=== PATIENT | male | born 1980 | race African-American/Black ===

== ENCOUNTER 2024-08-21 11:31 | Outpatient (AMB) | payer OTHER, SELFPAY ==
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
--- OUTSIDE RECORDS SUMMARY | 2024-08-21 14:10 | XMS_ITS | Clinical Summary ---
Author Organization [facility] Address [address] [place] [address] Phone Care Team Providers Care Polisher Eyeglass Frames Name Role Phone Jolly Beltre Primary Care Provider [phone] Allergies No known active allergies Medications FLUoxetine (PROzac) 20 mg capsuleIndicati ons:anxiety with depression Take 30 mg by mouth 1 (one) time each day. Active metFORMIN (GLUCOPHAGE) 500 mg tabletIndicatio ns:type 2 diabetes mellitus Take 1 tablet (500 mg total) by mouth 2 (two) times a day with meals. Active busPIRone (BUSPAR) 10 mg tabletIndicatio ns:generalized anxiety disorder Take 1 tablet (10 mg total) by mouth at bedtime as needed. Active methocarbamoL (ROBAXIN) 750 mg tablet Take 1 tablet (750 mg total) by mouth 4 (four) times a day for 10 days. 40 each 04/23/2024 Active Medical History Medical History Date Comments Diabetes mellitus (CMS/HCC) Anxiety Social History Tobacco Use Types Packs/Day Years Used Date Smoking Tobacco: Some Days Cigarettes Tobacco Cessation:Ready to Q uit: Not Asked; Counseling Given: Not Answered Alcohol Use Standard Drinks/Week Comments Not Currently 0 (1 standard drink = 0.6 oz pur e alcohol) Sex and Gender Information Value Date Recorded Sex Assigned at Not on file Legal Sex Male 7:34 PM EST Gender Identity Not on file Sexual Orientation Not on file Obstetrics History Last Filed Vital Signs Vital Sign Reading Time Taken Comments Blood Pressure 93/60 04/23/2024 5:43 AM EST Pulse 84 04/23/2024 5:43 AM EST Temperature 36.9 ??C (98.4 ??F) 04/23/2024 5:43 AM ES T Respiratory Rate 20 04/23/2024 5:43 AM EST Oxygen Saturation 98% 04/23/2024 5:43 AM EST Inhaled Oxygen Concentration - - Weight 81.6 kg (180 lb) 04/23/2024 5:43 AM EST Height 167.6 cm (5' 6 ) 04/23/2024 5:43 AM EST Body Mass Index 29.05 04/23/2024 5:43 AM EST Plan of Treatment Health Maintenance Due Date Last Done Comments Hepatitis B Vaccines (1 of 3 - 19+ 3-dose series) 10/09/1999 Cholesterol Screening (Lipid Panel) 05/20/2022 Depression Screening 05/20/2022 HIV Screening 05/20/2022 Hepatitis C Screening 05/20/2022 Social Influencers of Health Screening 05/20/2022 COVID-19 Vaccine ( - 2023-2 5 season) 2024 12/09/2020, 11/18/2020 Influenza Vaccine (#1) 2024 06/10/2014 Hypertension/CHF/CAD Annual BMP Blood Test 04/23/2024 DTaP,Tdap,and Td Vaccines (2 - Td or Tdap) 06/10/2024 06/10/2014 Pneumococcal Vaccine: Pediatrics (0 to 5 Years) and At-Risk Patients (6 to 64 Years) (3 of 3 - PCV20 or PCV21) 2030 12/17/2014, 06/10/2014 HIB Vaccines Aged Out No longer eligi ble based on patient's age to complete this topic HPV Vaccines Aged Out No longer eligi ble based on patient's age to complete this topic Hepatitis A Vaccines Aged Out No long er eligible based on patient's age to complete this topic IPV Vaccines Aged Out No longer eligi ble based on patient's age to complete this topic MMR Vaccines Aged Out No longer eligi ble based on patient's age to complete this topic Meningococcal ACWY Vaccine Aged Out N o longer eligible based on patient's age to complete this topic Meningococcal B Vacine Aged Out No lo nger eligible based on patient's age to complete this topic RSV Immunization Patients Under 20 months Aged Out No longer eligible b ased on patient's age to complete this topic Varicella Vaccines Aged Out No longer eligible based on patient's age to complete this topic Insurance MEDICAID - [place] Care Teams [employer] Relationship Specialty Start Date End Date Jolly Beltre PCP - General Family Medicine 04/23/24
== END 2024-08-21 12:31 | disposition home or self-care (01) ==
PROVIDERS: Visit Provider Physical Medicine & Rehabilitation
DX: M25.552 Pain in left hip (principal); Z04.3 Encounter for examination and observation following other accident; M16.12 Unilateral primary osteoarthritis, left hip
CPT/HCPCS: 99204

== ENCOUNTER 2024-08-21 11:31 | Outpatient (REF) | payer OTHER, SELFPAY ==
--- NOTE | ~2024-08-21 | XR_ITS ---
EXAMINATION: XR HIP, LEFT CLINICAL INFORMATION: M16.12 - Unilateral primary osteoarthritis, left hip COMPARISON: None available. TECHNIQUE: Two views of the left hip. FINDINGS: No fracture, dislocation, or suspicious bone lesion. Normal bone mineralization. Normal alignment. Normal acetabular coverage. Joint spaces are preserved. No significant arthropathy. There is mild calcific enthesopathy of the posterior greater trochanter. Soft tissues appear normal. XR/XR hip LT min 2V IMPRESSION: 1. No acute findings left hip. 2. Calcific enthesopathy of the posterior greater trochanter. Electronically signed by: Darren Hyman MD 08/25/2024 10:19 AM EDT
--- OUTSIDE RECORDS SUMMARY | 2024-08-21 14:38 | XMS_ITS | Clinical Summary ---
Author Organization [facility] Address [address] [place] [address] Phone Care Team Providers Care Mattress Spring Encaser Name Role Phone Jolly Beltre Primary Care Provider [phone] Allergies No known active allergies Medications FLUoxetine [...] topic Insurance MEDICA[place] - [place] Care Teams Mattress Spring Encaser Relationship Specialty Start Date End Date Jolly Beltre PCP - General Family Medicine 04/23/24
== END 2024-08-21 11:32 | disposition home or self-care (01) ==
LOC: HO.HOSX 11:31
PROVIDERS: Visit Provider Physical Medicine & Rehabilitation
DX: M16.12 Unilateral primary osteoarthritis, left hip (principal)
CPT/HCPCS: 73502

== ENCOUNTER → 2024-08-21 12:09 | Outpatient (BNV) | payer OTHER, SELFPAY | PROVIDERS: Visit Provider Radiology Diagnostic Radiology | DX: M77.8 Other enthesopathies, not elsewhere classified (principal) | CPT/HCPCS: 73502 ==

== ENCOUNTER 2024-09-04 09:07 | Outpatient (AMB) | payer OTHER, SELFPAY ==
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
== END 2024-09-04 09:34 | disposition home or self-care (01) ==
LOC: HO.HOS 09:07
PROVIDERS: Visit Provider Physical Medicine & Rehabilitation
DX: M25.552 Pain in left hip (principal); M70.62 Trochanteric bursitis, left hip
CPT/HCPCS: 98014